=== PATIENT | male | born 1975 | race Caucasian/White ===

== ENCOUNTER 2022-11-09 20:27 | Emergency (ER) | payer SELFPAY ==
[2022-11-09 20:35] VITALS: BP 127/85; PULSE 100; RESP 20; TEMP 37; O2SAT 98; BMI 25.5
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
[2022-11-09 20:53] LABS: Basophils # 0.2 K/mm3 (0-0.2); Basophils % 1.2 % (0.1-2.0); Eosinophils # 0.1 K/mm3 (0.0-0.4); Eosinophils % 0.9 % (0.1-12.0); Hematocrit 46.8 % (42.0-52.0); Hemoglobin 15.4 g/dL (14.1-18.0); Lymphocytes # 3.8 K/mm3 (0.7-4.5); Lymphocytes % 31.7 % (10-50); Mean Corpuscular Hemoglobin 30.4 pg (27.0-31.2); Mean Corpuscular Volume 92.2 fl (80-94); Mean Platelet Volume 8.4 fl (7.4-10.4); Monocytes # 0.7 K/mm3 (0.1-1.0); Monocytes % 6.3 % (1.7-9.3); Neutrophils # 7.1 K/mm3 (1.8-7.8); Neutrophils % 59.9 % (37.0-80.0); Platelet Count 270 K/mm3 (142-424); Red Blood Count 5.07 M/mm3 (4.60-6.20); Red Cell Distribution Width 13.7 % (11.5-17.5); White Blood Count 11.8 K/mm3 (4.8-10.8)
[2022-11-09 20:54] LABS: Chloride 104 mmol/L (98-107); Potassium 3.8 mmoL/L (3.5-5.1); Sodium 144 mmol/L (136-145)
[2022-11-09 20:57] LABS: Alanine Aminotransferase 81 U/L (12-78); Albumin Level 4.7 g/dl (3.5-5.0); Albumin/Globulin Ratio 1.3 (1.1-1.8); Alkaline Phosphatase 111 U/L (38-126); Anion Gap 21.8 mEq/L (5-15); Aspartate Amino Transferase 69 U/L (17-59); Bilirubin,Total 0.8 mg/dl (0.2-1.3); Blood Urea Nitrogen 18 mg/dl (9-20); Calcium 8.9 mg/dl (8.4-10.2); Carbon Dioxide 22 mmol/L (22.0-30.0); Creatinine Clearance Estimated 80 mL/min (50-200); Estimated Glomerular Filt Rate 59 ml/min (>60); GFR (African American) 72 ML/MIN (>60); Globulin 3.7 g/dL (1.3-3.2); Glucose 89 mg/dl (74-100); Total Protein,Serum 8.4 g/dl (6.3-8.2)
--- NOTE | 2022-11-09 21:05 | PC.NURSE ---
pt girl friend arrived and is at bedside
--- NOTE | 2022-11-09 21:30 | PC.NURSE ---
pt reassessed for potential complaint of being cold the pt states he is now warm. pt has no other complaints at this time.
[2022-11-09 21:33] VITALS: BP 164/96; PULSE 107; RESP 18; TEMP 36.6; O2SAT 97
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
--- NOTE | 2022-11-09 22:33 | PC.NURSE ---
states ok to d/c to police custody
[2022-11-09 23:36] LABS: Barbiturates Screen,Urine Negative ng/ml (<200)
[2022-11-09 23:37] LABS: Benzodiazepines Screen,Urine Negative ng/ml (<200)
[2022-11-09 23:38] LABS: Cannabinoid Screen,Urine Positive ng/ml (<50)
[2022-11-09 23:39] LABS: Cocaine Screen,Urine Negative ng/ml (<300); Methadone Screen,Urine Negative ng/ml (<300)
[2022-11-09 23:40] LABS: Opiate Screen,Urine Negative ng/ml (<300); Phencyclidine Screen,Urine Negative ng/ml (<25)
[2022-11-09 23:50] LABS: Amphetamine/Metha Screen,Urine Positive ng/ml (<1000)
== END 2022-11-09 22:40 ==
PROVIDERS: Emergency Provider Emergency Medicine
DX: F19.99 Other psychoactive substance use, unspecified with unspecified psychoactive substance-induced disorder (principal); F17.210 Nicotine dependence, cigarettes, uncomplicated; V27.49XA Other motorcycle driver injured in collision with fixed or stationary object in traffic accident, initial encounter
CPT/HCPCS: 71045; 72170; 80053; 80305; 85025; 99285

== ENCOUNTER 2024-12-31 01:36 | Emergency (ER) | payer MEDICAID, SELFPAY ==
--- NOTE | 2024-12-31 01:43 | XR_ITS ---
PROCEDURE INFORMATION: Exam: XR Left Foot Exam date and time: 12/31/2024 1:45 AM Age: 49 years old Clinical indication: Pain; Foot; Left; Additional info: Stepped on nail btwn distal 4th and 5th metatarsal TECHNIQUE: Imaging protocol: Radiologic exam of the left foot. Views: 3 or more views. COMPARISON: No relevant prior studies available. FINDINGS: Bones/joints: Normal. Soft tissues: Normal. IMPRESSION: No acute findings.
[2024-12-31 01:46] VITALS: BP 158/65; PULSE 120; RESP 20; TEMP 36.9; O2SAT 97; BMI 27.2
[2024-12-31] MEDS: TET/DIPHTH/PERT-ADULT 0.5ML SYRINGE 0.5 ML IM (01:55)
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
--- NOTE | 2024-12-31 01:58 | PC.WOUNDNOTE ---
NO OBVIOUS FOREIGN BODY NOTED. NO DRAINAGE/BLEEDING AT THIS TIME. DENIES PAIN/FEVER. PT AMBULATORY WITHOUT LIMP. TDAP GIVEN.AWAITING IMAGING AT THIS TIME.
[2024-12-31] MEDS: levoFLOXacin 750 MG TABLET PO (02:29)
[2024-12-31] MEDS: BACITRACIN ZINC OINT 30GM TUBE TP (02:29)
[2024-12-31 02:37] VITALS: BP 127/82; PULSE 110; RESP 18; TEMP 36.6; O2SAT 97
== END 2024-12-31 02:38 | disposition home or self-care (01) ==
PROVIDERS: Emergency Provider Emergency Medicine; PCP Family Medicine
DX: S91.332A Puncture wound without foreign body, left foot, initial encounter (principal); M79.672 Pain in left foot; F17.210 Nicotine dependence, cigarettes, uncomplicated; Z23 Encounter for immunization; W45.0XXA Nail entering through skin, initial encounter; Y93.89 Activity, other specified; Y92.9 Unspecified place or not applicable
CPT/HCPCS: 73630; 90471; 90715; 99283